=== PATIENT | male | born 1980 | race African-American/Black ===

== ENCOUNTER 2020-01-29 06:38 | Outpatient (CLI) | payer BC, SELFPAY ==
--- NOTE | 2020-01-29 07:30 | NEURO_ITS ---
TEST: ELECTROENCEPHALOGRAM DIAGNOSIS: SEIZURE PATIENT NUMBER: [id number] EEG NUMBER: [id number] RECORDING DATE: 01/29/20 CLINICAL HISTORY: Patient reports he lost consciousness 1 time a couple of weeks ago. Admits he is a heavy drinker. CONDITION OF RECORDING: Awake, drowsy and sleep EEG DESCRIPTION: During brief period of wakefulness basic resting occipital frequency consists of low voltage alpha mixed with low voltage beta. During drowsiness low voltage beta activity is seen diffusely mixed with waxing and waning posterior alpha rhythms. Bilateral symmetrical sleep activity is seen during sleep. Hyperventilation produced poor build-up. Photic stimulation produced poor drive. Nonparoxysmal. Nonfocal. Nonlateralizing. IMPRESSION: No significant abnormalities noted. [facility]
== END 2020-01-29 06:39 | disposition home or self-care (01) ==
PROVIDERS: PCP Internal Medicine Gastroenterology; Visit Provider Psychiatry & Neurology Neurology
DX: R56.9 Unspecified convulsions (principal)
CPT/HCPCS: 95816

== ENCOUNTER 2021-05-04 16:37 | Observation (INO) | payer BC, SELFPAY ==
[2021-05-04] VITALS (23 sets, daily range): BP systolic 135–154; BP diastolic 92–102; PULSE 82–136; RESP 17–31; TEMP 37.9; O2SAT 97–100
--- NOTE | ~2021-05-04 | XR_ITS ---
EXAMINATION: XR mandible min 4V DATE: 05/04/2021 18:01 INDICATION: Left facial swelling. TECHNIQUE: 4 views of the mandible were obtained. COMPARISON: None. FINDINGS: Bone alignment is normal. No fracture. The temporomandibular joints are normal. IMPRESSION: 1. Normal mandible. Reviewed, dictated and finalized at location A. IMPRESSION: 1. Normal mandible.
--- NOTE | ~2021-05-04 | XR_ITS ---
EXAMINATION: XR chest 1V portable DATE: 05/04/2021 17:38 INDICATION: Shortness of breath. Seizure. TECHNIQUE: A single frontal view of the chest was obtained. COMPARISON: None. FINDINGS: The chest demonstrates clear lungs without pneumonia, pleural effusion, or pneumothorax. Th e heart size is normal. IMPRESSION: 1. No acute cardiopulmonary disease. Reviewed, dictated and finalized at location A.
--- NOTE | ~2021-05-04 | MR_ITS ---
EXAMINATION: MR abdomen wo/w con DATE: 05/05/2021 15:48 INDICATION: Liver mass. TECHNIQUE: Magnetic resonance imaging (MRI) of the abdomen was performed without and with 10 mL Multi Nazario intravenous contrast. Sequences included coronal T2-weighted FS FSE, coronal and axial FS FIEST A, axial T2-weighted FSE, coronal LAVA-flex, axial STIR FSE, axial DWI, axial dual-echo T1-weighted F SPGR, and axial LAVA. Postcontrast sequences included coronal LAVA-flex and a time course of axial LA VA. COMPARISON: CT abdomen and pelvis 05/05/2021 FINDINGS: The liver demonstrates heterogeneous diffuse steatosis. The gallbladder, spleen, pancreas, adrenal gl ands, and left kidney are normal. There is a 5 mm cyst in right kidney. There are no dilated loops of bowel. There are no pathologically enlarged lymph nodes. There is no free intraperitoneal fluid. IMPRESSION: 1. Heterogeneous hepatic steatosis, which correlates with the CT abnormality. Reviewed, dictated and finalized at location A.
--- NOTE | ~2021-05-04 | CT_ITS ---
EXAMINATION: CT abdomen pelvis wo con EXAM DATE: 05/05/2021 11:07 INDICATION: Fever. TECHNIQUE: Spiral CT of the abdomen and pelvis was performed without contrast. Axial, coronal and s agittal images of the abdomen and pelvis were reviewed. The dose-length product (DLP) for this exami nation was 196.65 mGy-cm. The exposure was tailored according to patient size (auto mA exposure cont rol), and iterative reconstruction (ASIR) was used as additional dose reduction technique. There is no prior study for comparison. FINDINGS: There are approximately 7 scattered regions of geographic shaped peripheral decreased liver density which are nonspecific, but could be focal regions of hepatic steatosis, regions of scarring or edema. Contrast-enhanced MR would be most specific. No suspicion of liver mass. There is mild hepa tic steatosis. Gallbladder is unremarkable. No biliary obstruction. Spleen, adrenal glands and pancreas are unremar kable. There is no nephrolithiasis or hydronephrosis. The prostate is unremarkable. The bladder i s unremarkable. There is no retroperitoneal or pelvic lymphadenopathy. Some fluid in the left ingu inal canal. Small umbilical fat-containing hernia. The appendix is normal. The stomach and small bowel are unremarkable. There is colonic fluid, corre late for diarrhea. No free intraperitoneal gas. The heart is normal in size. There are no perica rdial or pleural effusions. The lung bases are unremarkable. There are no osteoblastic or osteolyti c lesions identified. IMPRESSION: 1. Hepatic steatosis with scattered regions of nonspecific peripheral liver decreased attenuation. P ossible considerations include focal hepatic steatosis, scarring, edema from nonspecific etiology inc luding perfusion anomaly or infection. Contrast-enhanced MR would be most specific. 2. Colonic fluid, diarrhea. Reviewed, dictated and finalized at location B. IMPRESSION: 1. Hepatic steatosis with scattered regions of nonspecific peripheral liver de creased attenuation. Possible considerations include focal hepatic steatosis, s carring, edema from nonspecific etiology including perfusion anomaly or infecti on. Contrast-enhanced MR would be most specific. 2. Colonic fluid, diarrhea.
--- NOTE | ~2021-05-04 | CT_ITS ---
EXAMINATION: CT brain wo con DATE: 05/04/2021 18:07 INDICATION: Seizure. Head injury one week ago. TECHNIQUE: Computed tomography (CT) of the head was performed without intravenous contrast. The mA wa s adjusted according to patient size. Iterative reconstruction technique was employed. The dose-lengt h product was 605.33 mGy-cm. COMPARISON: None FINDINGS: There is no intracranial hemorrhage, acute infarction, or abnormal intracranial mass lesion . The ventricles are normal in size. The orbits are normal. The paranasal sinuses are clear. The mast oid air cells are normal. IMPRESSION: 1. Normal brain. Reviewed, dictated and finalized at location A. IMPRESSION: 1. Normal brain.
--- NOTE | 2021-05-04 16:41 | ECG_ITS ---
Measurements Intervals [place] Rate: 111 P: -4 OR: 156 QRS: 2 QRSD: 92 T: 46 QT: 320 QTc: 437 Interpretive Statements SINUS TACHYCARDIA DELAYED PRECORDIAL R/S TRANSITION NONSPECIFIC T-WAVE ABNORMALITY- ANT/INF LEADS BASELINE ARTIFACT- I, II, III, AVR, AVL, AVF, V2-V6 ABNORMAL ECG Electronically Signed On 05-05-2021 6:23:05 CDT by Je Berrios D.O.
[2021-05-04 16:51] LABS: Basophils Percent Auto 0.3 % (0.2-1.2); Eosinophils Percent Auto 0.6 % (0-4.4); Hemoglobin 12.8 g/dL (14.0-18.0); Immature Granulocyte Absolute 0.03 K/mm3 (0.00-0.031); Immature Granulocyte Percent A 0.9 % (0-0.5); Immature Platelet Fraction Pct 7.5 % (0.9-11.2); Lymphocytes Percent Auto 14.3 % (18.3-44.2); Mean Corpuscular HGB Conc 32.8 g/dl (32-36); Mean Corpuscular Hemoglobin 32.9 pg (26-34); Mean Corpuscular Volume 100.3 fl (80-100); Mean Platelet Volume 11.1 fl (7.4-10.4); Monocytes Absolute Auto 0.3 K/mm3 (0.1-0.6); Monocytes Percent Auto 9.1 % (2.6-8.5); Neutrophils Absolute Auto 2.6 K/mm3 (1.3-6.7); Neutrophils Percent Auto 74.8 % (45.5-73.1); Platelet Count Result 58 k/mm3 (150-375); Red Blood Count 3.89 M/mm3 (4.6-6.20); Red Cell Distribution Width 12.6 % (11.5-14.5); White Blood Count 3.5 K/mm3 (4.5-10.0)
[2021-05-04 17:09] LABS: Platelet Estimate Decreased (Adequate)
[2021-05-04 17:10] LABS: Ovalocytes 1+ (NORMAL); Stomatocytes 1+ (NORMAL)
[2021-05-04 17:11] LABS: Anion Gap 19 mmol/L (8-16); Blood Urea Nitrogen 4 mg/dL (9-20); Calcium 9.2 mg/dL (8.4-10.2); Carbon Dioxide 23 mmol/L (22-30); Chloride 98 mmol/L (98-107); Estimated CRCL calculation 92 ml/min; Estimated Glomerular Filt Rate > 60; Glucose 181 mg/dL (65-110); Potassium 2.6 mmol/L (3.4-5.0); Sodium 140 mmol/L (137-145)
--- NOTE | 2021-05-04 17:12 | ED.GENADULT ---
HPI - General Adult General Chief complaint: Seizure <Kendy Watts PA-C - Last Filed: 05/04/21 21:37> Stated complaint: SEIZURE <Kendy Watts PA-C - Last Filed: 05/04/21 21:37> Time Seen by Provider: 05/04/21 16:46 <Kendy Watts PA-C - Last Filed: 05/04/21 21:37> Source: patient and family <Kendy Watts PA-C - Last Filed: 05/04/21 21:37> Mode of arrival: EMS <Kendy Watts PA-C - Last Filed: 05/04/21 21:37> Limitations: no limitations <Kendy Watts PA-C - Last Filed: 05/04/21 21:37> History of Present Illness HPI narrative: Patient was brought in by EMS after [facility] The seizure occurred approximately 4:20 PM and per the 's report lasted 1 to 2 minutes with whole body involvement. He has a history of having a seizure 2 years ago. Was been treated with Keppra his dose recently half. They were out of town this weekend and he did not take any meds. He also has a history of alcohol abuse per his he drank a lot this weekend including Monday, nothing today. He has a history of a fall in his kitchen last week which he hit his head he has swelling to his left cheek and jaw and a healing laceration to his left forehead. <Kendy Watts PA-C - Last Filed: 05/04/21 21:37> Onset (ago): hour(s) <Kendy Watts PA-C - Last Filed: 05/04/21 21:37> Associated symptoms: denies other symptoms <Kendy Watts PA-C - Last Filed: 05/04/21 21:37> Treatments prior to arrival: none <DREW Carter Last Filed: 05/04/21 21:37> Related Data Allergies/adverse reactions: Allergies Allergy/AdvReac Type Severity Reaction Status Date / Time No Known Allergies Allergy Verified 05/04/21 16:42 <Kendy Watts PA-C - Last Filed: 05/04/21 21:37> Review of Systems Review of Systems: All systems reviewed & are unremarkable except as noted in HPI and below <Kendy Watts PA-C - Last Filed: 05/04/21 21:37> [facility] Past Medical History Medical History: Medical History Alcohol abuse <Kendy Watts PA-C - Last Filed: 05/04/21 21:37> Social History Social History: Social History (Updated 05/04/21 @ 17:34 by Kendy Watts PA-C) Smoking status: Never smoker Alcohol intake: current Alcohol use details: reports 3-4 shots daily Substance use: never Living arrangements: with family <Kendy Watts PA-C - Last Filed: 05/04/21 21:37> Exam Const: General: no acute distress and alert <Kendy Watts PA-C - Last Filed: 05/04/21 21:37> Orientation/consciousness: patient oriented x3 <Kendy Watts PA-C - Last Filed: 05/04/21 21:37> HENMT: Head: other (healed laceration to left forehead and eyelid) <Kendy Watts PA-C - Last Filed: 05/04/21 21:37> Face and sinus: edema (cheek and jaw.) on the left <Kendy Watts PA-C - Last Filed: 05/04/21 21:37> Mouth: Yes Normal oral and palatal mucosa present <Kendy Wtats PA-C - Last Filed: 05/04/21 21:37> Throat: posterior oropharynx normal <DREW Carter Last Filed: 05/04/21 21:37> Eyes: Conjunctivae: conjunctivae normal <Kendy Watts PA-C - Last Filed: 05/04/21 21:37> Pupils: Equal, round and reactive pupils present <Kendy Watts PA-C - Last Filed: 05/04/21 21:37> EOM: EOMs intact bilaterally <Kendy Watts PA-C - Last Filed: 05/04/21 21:37> Other: subtle nystagmus <Kendy Watts PA-C - Last Filed: 05/04/21 21:37> Neck: Neck: no lymphadenopathy <Kendy Watts PA-C - Last Filed: 05/04/21 21:37> Resp: Effort & Inspection: normal respiratory effort <Kendy Watts PA-C - Last Filed: 05/04/21 21:37> Auscultation: diminished lung sounds diffuse <Kendy Watts PA-C - Last Filed: 05/04/21 21:37> Cardio: Rate: tachycardic <DREW Carter Last Filed: 05/04/21 21:37> Rhythm: regular rhythm <DREW Carter Last Filed: 05/04/21 21:37> GI: GI Palp: Yes Soft t
[2021-05-04] MEDS: THIAMINE HCL INJ 100 MG, FOLIC ACID INJ 1 MG, MULTIVITAMINS-12 INJ VIAL 1 5 ML, MULTIVI... IV CONT (18:30)
[2021-05-04 18:47] LABS: Ethanol < 10 mg/dL (<10)
--- NOTE | 2021-05-04 19:37 | PC.NURSE ---
Called lab and spoke to Moncho to add on Lytes and CBCD. Duplicate orders cancelled 1937
[2021-05-04 21:15] LABS: Basophils Percent Auto 0.3 % (0.2-1.2); Eosinophils Percent Auto 0.3 % (0-4.4); Hematocrit 36.4 % (42.0-52.0); Hemoglobin 12.2 g/dL (14.0-18.0); Immature Granulocyte Absolute 0.03 K/mm3 (0.00-0.031); Immature Granulocyte Percent A 0.8 % (0-0.5); Immature Platelet Fraction Pct 8.1 % (0.9-11.2); Lymphocytes Absolute Auto 0.38 K/mm3 (0.9-3.2); Lymphocytes Percent Auto 10.1 % (18.3-44.2); Mean Corpuscular HGB Conc 33.5 g/dl (32-36); Mean Corpuscular Hemoglobin 33.3 pg (26-34); Mean Corpuscular Volume 99.5 fl (80-100); Mean Platelet Volume 12.1 fl (7.4-10.4); Monocytes Absolute Auto 0.3 K/mm3 (0.1-0.6); Monocytes Percent Auto 7.4 % (2.6-8.5); Neutrophils Absolute Auto 3.1 K/mm3 (1.3-6.7); Neutrophils Percent Auto 81.1 % (45.5-73.1); Platelet Count Result 52 k/mm3 (150-375); Red Blood Count 3.66 M/mm3 (4.6-6.20); Red Cell Distribution Width 12.3 % (11.5-14.5); White Blood Count 3.8 K/mm3 (4.5-10.0)
[2021-05-04 21:40] LABS: Anion Gap 6 mmol/L (8-16); Carbon Dioxide 31 mmol/L (22-30); Chloride 101 mmol/L (98-107); Potassium 2.7 mmol/L (3.4-5.0); Sodium 138 mmol/L (137-145)
[2021-05-04] MEDS: levETIRAcetam 250 MG TABLET PO (21:44)
[2021-05-04] MEDS: POTASSIUM CHLORIDE 20 MEQ TABLET 40 MEQ PO (23:57)
[2021-05-05] VITALS (24 sets, daily range): BP systolic 111–153; BP diastolic 41–107; PULSE 71–107; RESP 16–31; TEMP 36.4–37.4; O2SAT 96–100; BMI 17.2
[2021-05-05 01:37] LABS: EDCOVIDSCREEN Negative (Negative)
--- NOTE | 2021-05-05 04:18 | ADMGEN ---
This patient, Wil Burnette, was admitted to Medical Room 243-01. Patient/family oriented to hospital policies and general routines including ID bracelet, bed and alarms, visiting hours, pain management, procedures, bathroom and other care routines, personal items, smoking policy, room service/diet, and visiting hours. Information on how to activate the Rapid Response Team has been discussed. Patient/Family are encouraged to report perceived risks to care and to ask questions if they do not understand what they are told or what they should do.
--- NOTE | 2021-05-05 04:51 | PM.IMHP ---
H&P: HPI History of Present Illness Date/Time: 05/05/21 04:51 Chief Complaint: Seizure Narrative: This is a 40-year-old male with past medical history significant for alcohol dependence, seizure disorder, the patient went to [employer] today and had a seizure outside does what brought him to the hospital. Patient and were out of town this weekend and according to the he had been been binge drinking and did not take his medications he also had a fall in the kitchen 1 or 2 weeks ago with closed trauma to the face which not require any intervention. Today in the emergency room he was noticed to be very tremulous aunt had unsteady gait and noticed to be very weak as well. Preliminary workup has been essentially nonrevealing patient denies any fevers, chills, rigors, nausea,vomiting, abdominal pain, diarrhea, lightheadedness, dizziness, cough, sputum production. A chemistry panel was significant for potassium of 2.7, chest x-ray with no acute abnormalities, mandible x-ray with no fractures, a COVID-19 test was negative. Patient has been placed in observation. Review of Systems Review of Systems: Seizure episode, fall at home in the kitchen 2 weeks ago, binge drinking, tremors, unsteady gait. Constitutional: Constitutional: Denies chills, Denies fatigue, Denies fever(s), Reports frequent falls and Denies night sweats Eyes: Eyes: Denies change in vision ENT: Denies vertigo, Denies dizziness, Denies facial pain, Denies headache(s), Denies nasal congestion, Denies nasal discharge, Denies nasal obstruction, Denies nasal trauma and Denies odynophagia Cardiovascular: Cardiovascular: Denies irregular heart rhythm, Denies lightheadedness, Denies radiating jaw, neck or arm pain, Denies palpitations, Denies dyspnea on exertion and Denies paroxysmal nocturnal dyspnea Respiratory: Respiratory: Denies cough, Denies dyspnea and Denies wheezing Gastrointestinal: Gastrointestinal: Denies abdominal pain, Denies diarrhea, Denies nausea and Denies vomiting Genitourinary: Genitourinary: Reports no additional male genitourinary complaints Musculoskeletal: Musculoskeletal: Denies myalgias, Denies muscle cramps and Denies muscle weakness Integumentary/Breasts: Skin/Breast: Reports system reviewed and no additional complaints, except as docu Neurologic: Denies focal weakness, Reports seizure-like activity, Denies Sensory deficit (Neuro) and Reports tremor(s) Psychiatric: Psychiatric: Reports no additional psychiatric complaints Endocrine: Endocrine: Reports no additional endocrine complaints Hematologic/Lymphatic: Hematologic/Lymphatic: Reports no additional hematologic/lymphatic complaints Allergic/Immunologic: Allergic/Immunologic: Reports no additional allergic/immunologic complaints [facility] Past Medical History Medical History Alcohol abuse Family History Family History (Updated 05/05/21 @ 04:26 by Wendy Conklin RN) Grandparent Hypertension Diabetes mellitus Social History Social History (Updated 05/04/21 @ 17:34 by Kendy Watts PA-C) Smoking status: Never smoker Alcohol intake: current Alcohol use details: reports 3-4 shots daily Substance use: never Living arrangements: with family Spiritual care concerns: No Meds Home Medications and Allergies Home Medications Medication Instructions Recorded Confirmed Type amlodipine 10 mg PO DAILY 05/05/21 05/05/21 History levetiracetam 250 mg PO BID 05/05/21 05/05/21 History losartan 25 mg PO DAILY 05/05/21 05/05/21 History Allergies Allergy/AdvReac Type Severity Reaction Status Date / Time No Known Allergies Allergy Verified 05/04/21 16:42 Vital Signs Vital Signs - 24 hr 05/04/21 16:37 05/04/21 16:41 05/04/21 18:36 Temperature 100.2 F H Pulse Rate 136 H 129 H 100 Respiratory Rate 24 H 18 Blood Pressure 142/102 H 135/102 H Pulse Oximetry 97 98 05/04/21 19:31 05/04/21 19:45 05/04/21 20:07 Temperature Pulse Rate 91 8
[2021-05-05] MEDS: chlordiazePOXIDE (*CRX) 25 MG CAPSULE 50 MG PO ×2 (05:58→12:10)
[2021-05-05] MEDS: THIAMINE HCL INJ 100 MG, FOLIC ACID INJ 1 MG, MULTIVITAMINS-12 INJ VIAL 1 5 ML, MULTIVI... IV CONT (05:58)
[2021-05-05] MEDS: POTASSIUM CHLORIDE 20 MEQ TABLET.ER PO (10:06)
[2021-05-05] MEDS: levETIRAcetam 250 MG TABLET PO (10:06)
[2021-05-05] MEDS: amLODIPine BESYLATE 5 MG TABLET 10 MG PO (10:42)
[2021-05-05] MEDS: LOSARTAN POTASSIUM 25 MG TABLET PO (10:42)
[2021-05-05 12:27] LABS: Alanine Aminotransferase 80 U/L (4-50); Albumin Level 4.6 g/dL (3.5-5.1); Alkaline Phosphatase 80 U/L (38-126); Aspartate Amino Transferase 224 U/L (17-59); Bilirubin,Total 0.6 mg/dL (0.2-1.3); Magnesium 1.5 mg/dL (1.6-2.3)
--- NOTE | 2021-05-05 12:50 | PM.IMPN ---
Progress Note: A&P Assessment and Plan (1) Fever: Code(s): R50.9 - Fever, unspecified Status: Acute Assessment and Plan: Patient had a fever yesterday of 100.2 -source unclear at this time, could be reaction to seizure. Fever could also cause seizure as well. No meningeal signs -will obtain UA -chest x-ray and COVID test negative -patient denies IV drug use or non-professional tattooing -he is having diarrhea, will obtain stool cultures. No history of antibiotic use. C diff less likely -he is leukopenic, could be due to possible alcohol use or viral infection. Viral infection seems less likely. Obtain records -obtain blood cultures. CT of the abdomen pelvis show a liver abnormality and an MRI is recommended. That has been ordered -No antibiotics indicated at this time but will monitor closely (2) Diarrhea: Code(s): R19.7 - Diarrhea, unspecified Status: Acute Assessment and Plan: As above (3) Alcohol withdrawal seizure: Qualifiers: Complication of substance-induced condition: uncomplicated Qualified Code(s): F10.230 - Alcohol dependence with withdrawal, uncomplicated; R56.9 - Unspecified convulsions Code(s): F10.239 - Alcohol dependence with withdrawal, unspecified; R56.9 - Unspecified convulsions Status: Acute Assessment and Plan: Seizure likely due to alcohol withdrawal and not taking his home Keppra -cannot exclude seizure from fever, although appears less likely at this time -CIWA 0, no signs of withdrawal on exam -patient has been started on Librium by previous provider. Will decrease slightly -continue folate and thiamine (4) Thrombocytopenia: Code(s): D69.6 - Thrombocytopenia, unspecified Status: Acute Assessment and Plan: Likely due to alcohol abuse, will obtain records -viral etiology seems less likely (5) Acute hypokalemia: Code(s): E87.6 - Hypokalemia Status: Acute Assessment and Plan: Patient continues to be low likely due to diarrhea and alcohol use -continue supplementation of magnesium and potassium (6) Seizure: Code(s): R56.9 - Unspecified convulsions Status: Acute Assessment and Plan: As above Time Spent With Patient Time with patient: 25 - 35 minutes Subjective Date/time seen: 05/05/21 12:50 Interval history: Pt is a 40-year-old male here for seizure and fever. Patient was seen today and states he is doing okay. He continues to have diarrhea without blood. He says this is been going on since he got back from [place] last week. He visited their the through the . He did have a lot alcohol at that time but has not drink since then. He is unvaccinated and wore a mask but other we will were not wearing masks. No one else is sick. He said he had been having diarrhea and throwing up and then had a seizure as stated in the HPI. He has not had any neurological deficits, numbness or tingling since that seizure. He has no history of leukopenia, thrombocytopenia, hepatitis or any liver abnormalities that he knows of. He says he drinks about 3-4 drinks a day which contains either shots or beer. All of his tattoos were done professionally. No chest pain or shortness of breath. Review of Systems Review of Systems: All systems reviewed & are unremarkable except as noted in HPI and below Exam Narrative: General: Well developed well nourished patient in NAD HEENT: normocephalic Neck: supple Neuro: Alert and oriented x4. Cranial nerves 2 through 12 intact. Equal strength upper lower extremities 5/5. Gait normal CV:RRR Resp:CTA Abd: Soft, non distended. No pain to palpation. Positive bowel sounds Extremities: No swelling, erythema, or pain to palpation. Objective Data Vital Signs Vital Signs: Vital Signs - 24 hr 05/04/21 16:37 05/04/21 16:41 05/04/21 18:36 Temperature 100.2 F H Pulse Rate 136 H 129 H 100 Respirator
[2021-05-05 12:58] LABS: Anion Gap 12 mmol/L (8-16); Blood Urea Nitrogen 5 mg/dL (9-20); Calcium 8.5 mg/dL (8.4-10.2); Carbon Dioxide 28 mmol/L (22-30); Chloride 97 mmol/L (98-107); Estimated CRCL calculation 100 ml/min; Estimated Glomerular Filt Rate > 60; Glucose 80 mg/dL (65-110); Potassium 2.8 mmol/L (3.4-5.0); Sodium 137 mmol/L (137-145)
[2021-05-05 13:49] LABS: Hemoglobin A1C 5.9 % (<5.7)
[2021-05-05] MEDS: FOLIC ACID 1 MG TABLET PO (16:15)
[2021-05-05] MEDS: THIAMINE HCL 100 MG TABLET PO (16:15)
--- NOTE | 2021-05-05 16:17 | WPDNEURCNPN ---
Assessment and Plan Additional Plan as such Consult date: 05/05/21 Time Seen: 09:45 HPI: Wil Burnette is a 40 year old male admitted to the hospital with the complaints of recurrence of the seizures . Patient carries the diagnosis of 1. Alcohol dependency 2. Seizure disorder as per the information available he went [facility] had a seizure outside then brought to the hospital he had been binge drinking and not taking his medication fell in kitchen 1 to 2 weeks ago with closed head trauma the 5 and trauma to the face in the emergency room he was very tremulous unsteady and weak. evaluation in the ER were unrewarding except potassium of 2.7 chest x-ray mandible x-rays were negative with no fracture and COVID was negative. As mentioned before his history of alcohol abuse no small, no substance abuse, lives with family, initial vital signs revealed him to be slightly febrile with pulse of 136 respiration 24 blood pressure 152/102, admitted to the hospital for the alcohol withdrawal syndrome in addition to the seizure precautions initial x-rays included the mandibular x-rays which were negative psoas the chest x-ray and CT scan of the head, MRI of the abdomen was done which documented heterogeneous hepatic steatosis which again was consistent with the findings seen on CT scan Review of Systems Review of Systems: All systems reviewed & are unremarkable except as noted in HPI and below PMFSH Past Medical History Medical History Alcohol abuse Family History Family History Grandparent Hypertension Diabetes mellitus Social History Social History Smoking status: Never smoker Alcohol intake: current Alcohol use details: reports 3-4 shots daily Substance use: never Living arrangements: with family Spiritual care concerns: No Meds Home Medications and Allergies Home Medications Medication Instructions Recorded Confirmed Type amlodipine 10 mg PO DAILY 05/05/21 05/05/21 History levetiracetam 250 mg PO BID 05/05/21 05/05/21 History losartan 25 mg PO DAILY 05/05/21 05/05/21 History Allergies Allergy/AdvReac Type Severity Reaction Status Date / Time No Known Allergies Allergy Verified 05/04/21 16:42 Vital Signs Vital Signs - 24 hr 05/04/21 16:37 05/04/21 16:41 05/04/21 18:36 Temperature 37.9 C H Pulse Rate 136 H 129 H 100 Respiratory Rate 24 H 18 Blood Pressure 142/102 H 135/102 H Pulse Oximetry 97 98 05/04/21 19:31 05/04/21 19:45 05/04/21 20:07 Temperature Pulse Rate 91 82 96 Respiratory Rate 20 17 19 Blood Pressure 137/99 H Pulse Oximetry 100 05/04/21 20:15 05/04/21 20:37 05/04/21 20:45 Temperature Pulse Rate 86 91 101 H Respiratory Rate 25 H 23 H 21 H Blood Pressure Pulse Oximetry 05/04/21 21:07 05/04/21 21:15 05/04/21 21:30 Temperature Pulse Rate 88 93 97 Respiratory Rate 26 H 23 H 23 H Blood Pressure Pulse Oximetry 05/04/21 21:42 05/04/21 21:45 05/04/21 22:00 Temperature Pulse Rate 88 90 Respiratory Rate 24 H 31 H 26 H Blood Pressure 140/92 H Pulse Oximetry 100 05/04/21 22:02 05/04/21 22:03 05/04/21 22:15 Temperature Pulse Rate 90 85 88 Respiratory Rate 25 H 25 H 21 H Blood Pressure 154/102 H Pulse Oximetry 100 05/04/21 22:16 05/04/21 22:35 05/04/21 22:54 Temperature Pulse Rate 94 98 93 Respiratory Rate 24 H 17 25 H Blood Pressure 143/99 H Pulse Oximetry 05/04/21 23:00 05/04/21 23:53 05/05/21 00:00 Temperature Pulse Rate 92 85 98 Respiratory Rate 20 23 H 31 H Blood Pressure Pulse Oximetry 05/05/21 00:01 05/05/21 00:15 05/05/21 00:16 Temperature 37.4 C Pulse Rate 97 84 92 Respiratory Rate 23 H 18 17 Blood Pressure 152/105 H 149/102 H Pulse Oximetry 96 05/05/21 00:41 05/05/21 00:45 05/05/21 00:46 Temperature Pulse Rate 86 88 90 Respiratory Rate 19 17
--- NOTE | 2021-05-05 16:56 | PM.DS ---
DS: Admitting Diagnosis Admitting Diagnosis Seizures DS: Discharge Diagnosis Discharge Diagnosis (1) Fever: Code(s): R50.9 - Fever, unspecified Status: Acute Assessment and Plan: Patient had a fever yesterday of 100.2 -source unclear at this time, could be reaction to seizure. Fever could also cause seizure as well. No meningeal signs -will obtain UA -chest x-ray and COVID test negative -patient denies IV drug use or non-professional tattooing -he is having diarrhea, will obtain stool cultures. No history of antibiotic use. C diff less likely -he is leukopenic, could be due to possible alcohol use or viral infection. Viral infection seems less likely. Obtain records -obtain blood cultures. CT of the abdomen pelvis show a liver abnormality and an MRI is recommended. That has been ordered -No antibiotics indicated at this time but will monitor closely (2) Diarrhea: Code(s): R19.7 - Diarrhea, unspecified Status: Acute Assessment and Plan: As above (3) Alcohol withdrawal seizure: Qualifiers: Complication of substance-induced condition: uncomplicated Qualified Code(s): F10.230 - Alcohol dependence with withdrawal, uncomplicated; R56.9 - Unspecified convulsions Code(s): F10.239 - Alcohol dependence with withdrawal, unspecified; R56.9 - Unspecified convulsions Status: Acute Assessment and Plan: Seizure likely due to alcohol withdrawal and not taking his home Keppra -cannot exclude seizure from fever, although appears less likely at this time -CIWA 0, no signs of withdrawal on exam -patient has been started on Librium by previous provider. Will decrease slightly -continue folate and thiamine (4) Thrombocytopenia: Code(s): D69.6 - Thrombocytopenia, unspecified Status: Acute Assessment and Plan: Likely due to alcohol abuse, will obtain records -viral etiology seems less likely (5) Acute hypokalemia: Code(s): E87.6 - Hypokalemia Status: Acute Assessment and Plan: Patient continues to be low likely due to diarrhea and alcohol use -continue supplementation of magnesium and potassium (6) Seizure: Code(s): R56.9 - Unspecified convulsions Status: Acute Assessment and Plan: As above DS: Summary Hospital Course Hospital Course: I was asked to see the patient as he was wanting to leave against medical advise. I did speak with him in detail and he is insistent on leaving. He is alert and oriented x3. He was able to tell me the risks leaving the hospital in detail and understands his medical condition with good insight. He understands the risk recurrence of his seizures, low potassium, and other medical issues being evaluated currently. Despite repeated attempts to have stay he elected to sign AMA papers and leave. Time Spent with Patient Time attestation: Total time spent providing and/or coordinating discharge services: 15 DS: Data Data Completed and Pending Labs on day of discharge: Labs from last 24 hours 05/05/21 05/05/21 05/05/21 11:33 11:33 11:33 WBC RBC Hgb Hct MCV MCH MCHC RDW Plt Count MPV Immature Gran % (Auto) Neut % (Auto) Lymph % (Auto) Roberts % (Auto) Eos % (Auto) Baso % (Auto) Lymph # (Auto) Roberts # (Auto) Eos # (Auto) Baso # (Auto) Abs Immat Gran (auto) Absolute Neuts (auto) Absolute Nucleated RBC Nucleated RBC % Platelet Estimate % Immature Plt Fraction Ovalocytes Stomatocytes Sodium 137 Potassium 2.8 L* Chloride 97 L Carbon Dioxide 28 Anion Gap 12 BUN 5 L Creatinine 0.60 L Estim Creat Clear Calc 100 Estimated GFR > 60 Glucose 80 Hemoglobin A1c 5.9 H Calcium 8.5 Magnesium 1.5 L Total Bilirubin 0.6 Direct Bilirubin 0.0 AST 224 H ALT 80 H Alkaline Phosphatase 80 Total Protein 8.0
--- NOTE | 2021-05-05 17:00 | PM.EVENT ---
Event Note Event Note Event Note: Late note-date of event 05/05/21 1700 Pt was seen at 1700 as he requested to leave AMA. I explained to him his dangerous electrolyte abnormalities, fever, and seizure that is being worked up and that he is at risk for worsening, including . He states there was nothing I could do or say to make him stay and that he was leaving. He agreed not to drive and to follow up with his pcp. He states he has seizure medicine he can refill.
[2021-05-05] MEDS: POTASSIUM CHLORIDE 20 MEQ TABLET 40 MEQ PO (17:06)
--- NOTE | 2021-05-05 17:11 | PC.NURSE ---
Patient notified of risks of leaving AMA. [ Caprice] notified. Follow up instructions given to patient. Patient signed AMA form.
== END 2021-05-05 17:09 | disposition left against medical advice (07) ==
LOC: ANHED 05-05 02:54 → ANH2MED 05-05 03:47
PROVIDERS: Emergency Medicine; Physician Assistant; Admitting Provider Internal Medicine; Emergency Provider Emergency Medicine; PCP Internal Medicine Gastroenterology; Visit Provider Internal Medicine Nephrology
DX: R56.9 Unspecified convulsions (principal); F10.239 Alcohol dependence with withdrawal, unspecified; D69.6 Thrombocytopenia, unspecified; E87.6 Hypokalemia; R50.9 Fever, unspecified; R19.7 Diarrhea, unspecified; K76.0 Fatty (change of) liver, not elsewhere classified; Z20.822 Contact with and (suspected) exposure to COVID-19
CPT/HCPCS: 36415; 70110; 70450; 71045; 74176; 74183; 80048; 80051; 80076; 80307; 83036; 83735; 85025; 85055; 87040; 87426; 93005; 96365; 96366; 96375; 96376; 99285; A9270; A9577; C9803; G0378; J3411; J3475; J3480; J7030; J7060